=== PATIENT | female | born 1935 | race Two or more races ===

== ENCOUNTER → 2017-03-21 | Outpatient (CLI) | payer OTHER ==
[~2017-03-21] MED LIST: ASPI-515 PO; FURO20TA3 PO; HYDR-3240 PO; LIDOCAINE PATCH 5% SUBD; LISI-167 PO; MULT-6 PO; POTA10TA6 PO
== END | disposition home or self-care (01) ==
LOC: CVU 13:58
PROVIDERS: ATTEND Surgery
DX: I70.213 Atherosclerosis of native arteries of extremities with intermittent claudication, bilateral legs (principal); E78.5 Hyperlipidemia, unspecified; E11.9 Type 2 diabetes mellitus without complications
CPT/HCPCS: 93922; 93925

== ENCOUNTER 2017-03-31 09:42 | Inpatient (IN) | payer OTHER, MEDICARE ==
[~2017-03-31] VITALS: Ht 149.9 cm; Wt 56.8 kg
[2017-03-31 10:34] LABS: HEMATOCRIT 43.8 % (34.6-47.8); HEMOGLOBIN 14.4 g/dL (11.7-16.4); WHITE BLOOD COUNT 8.1 x10^3/uL (3.4-10)
[2017-03-31 10:45] LABS: BLOOD UREA NITROGEN 18 mg/dL (7-18)
[2017-03-31] MEDS ORDERED: CEFTAROLINE 600 MG in SODIUM CHLORIDE 0.9% 100 ML IV ONE (11:00)
[2017-03-31] MEDS ORDERED: DICL100G19 TP (11:33)
[2017-03-31] MEDS ORDERED: FURO-93 PO (11:33)
[2017-03-31] MEDS ORDERED: CETI10CA PO (11:33)
[2017-03-31] MEDS ORDERED: METF500T4 PO (11:33)
[2017-03-31] MEDS ORDERED: TIZA2TAB PO (11:33)
[2017-03-31] MEDS ORDERED: FOLI-17 PO (11:33)
[2017-03-31] MEDS ORDERED: PRED5TAB PO (11:33)
[2017-03-31] MEDS ORDERED: PILO7.5T PO (11:33)
[2017-03-31] MEDS ORDERED: DIPHENHYDRAMINE 50 MG/ML, 1ML ONE (13:24)
[2017-03-31] MEDS ORDERED: methylPREDNISolone SOD SUCC 125 MG/2 ML ONE (13:34)
[2017-03-31] MEDS ORDERED: TEMAZEPAM 15 MG CAPSULE PO PRN (14:00)
[2017-03-31] MEDS ORDERED: DIPHENHYDRAMINE 50 MG/ML, 1ML IVPush ONE (14:00)
[2017-03-31] MEDS ORDERED: DOCUSATE 100 MG CAPSULE PO PRN (14:00)
[2017-03-31] MEDS ORDERED: hydrALAzine 20 MG/ML, 1ML IVPush PRN (14:00)
[2017-03-31] MEDS ORDERED: CEFTAROLINE 600 MG in SODIUM CHLORIDE 0.9% 100 ML IV SCH (14:00)
[2017-03-31] MEDS ORDERED: POLYETHYLENE GLYCOL 17 GM PACKET PO PRN (14:00)
[2017-03-31] MEDS ORDERED: ENALAPRILAT 1.25 MG/ML, 2ML IVPush PRN (14:00)
[2017-03-31] MEDS ORDERED: morphine SULFATE 10 MG/ML, 1ML IVPush PRN (14:00)
[2017-03-31] MEDS ORDERED: ACETAMINOPHEN 325 MG TABLET PO PRN (14:00)
[2017-03-31] MEDS ORDERED: methylPREDNISolone SOD SUCC 125 MG/2 ML IVPush ONE (14:00)
[2017-03-31] MEDS ORDERED: TIZANIDINE HCL 2 MG PO SCH (14:00)
[2017-03-31] MEDS ORDERED: ONDANSETRON 2MG/ML, 2ML IVPush PRN (14:00)
[2017-03-31] MEDS ORDERED: BISACODYL 10 MG SUPP PR PRN (14:00)
[2017-03-31] MEDS: HEPARIN 5,000 UNITS/ML, 1ML SQ SCH ×2 (15:27→23:53)
[2017-03-31] MEDS: OXYcodone IR 5MG TABLET PO PRN (18:34)
[2017-03-31 18:55] VITALS: BP 169/78
[2017-03-31 19:55] VITALS: BP 143/70
[2017-03-31] MEDS: metFORMIN 500 MG TABLET PO SCH (20:42)
[2017-04-01 02:24] VITALS: BP 152/84
[2017-04-01] MEDS: OXYcodone IR 5MG TABLET PO PRN ×3 (02:29→18:30)
[2017-04-01 05:59] LABS: ASPARTATE AMINO TRANSFERASE 14 U/L (15-37); BLOOD UREA NITROGEN 23 mg/dL (7-18); HEMATOCRIT 36.6 % (34.6-47.8); HEMOGLOBIN 12.3 g/dL (11.7-16.4); WHITE BLOOD COUNT 7.4 x10^3/uL (3.4-10)
[2017-04-01] MEDS: HEPARIN 5,000 UNITS/ML, 1ML SQ SCH ×2 (07:19→15:33)
[2017-04-01 08:14] VITALS: BP 122/69
[2017-04-01] MEDS: PILOCARPINE HCL 7.5 MG HOMEMEDPO SCH ×3 (09:00→20:27)
[2017-04-01] MEDS: TEMPLATE NON-FORMULARY MED. (Diclofenac Sodium (Voltaren) 1 APPLIC) TP SCH (09:00)
[2017-04-01] MEDS: CEFTAROLINE 600 MG in SODIUM CHLORIDE 0.9% 100 ML IV SCH ×2 (09:51→20:27)
[2017-04-01] MEDS: LISINOPRIL 10 MG TABLET PO SCH (09:52)
[2017-04-01] MEDS: FOLIC ACID 1 MG TABLET PO SCH (09:52)
[2017-04-01] MEDS: CETIRIZINE 10 MG TABLET PO SCH (09:52)
[2017-04-01] MEDS: POTASSIUM CHLORIDE 10 MEQ TABLET.ER PO SCH (09:52)
[2017-04-01] MEDS: metFORMIN 500 MG TABLET PO SCH ×2 (09:52→20:27)
[2017-04-01] MEDS: ASPIRIN 81 MG TABLET EC PO SCH (09:52)
[2017-04-01 14:30] VITALS: BP 154/90
[2017-04-01 19:05] VITALS: BP 145/73
[2017-04-01] MEDS ORDERED: SIMVASTATIN 40 MG TABLET PO SCH (21:00)
[2017-04-02] MEDS: HEPARIN 5,000 UNITS/ML, 1ML SQ SCH ×3 (00:13→16:30)
[2017-04-02 02:30] VITALS: BP 140/69
[2017-04-02 06:56] VITALS: BP 178/81
[2017-04-02] MEDS: LISINOPRIL 10 MG TABLET PO SCH ×2 (08:59→22:57)
[2017-04-02] MEDS: metFORMIN 500 MG TABLET PO SCH ×2 (08:59→22:57)
[2017-04-02] MEDS: CEFTAROLINE 600 MG in SODIUM CHLORIDE 0.9% 100 ML IV SCH ×2 (08:59→22:56)
[2017-04-02] MEDS: ASPIRIN 81 MG TABLET EC PO SCH (09:00)
[2017-04-02] MEDS: POTASSIUM CHLORIDE 10 MEQ TABLET.ER PO SCH (09:00)
[2017-04-02] MEDS ORDERED: FUROSEMIDE 20 MG TABLET PO SCH (09:00)
[2017-04-02] MEDS: CETIRIZINE 10 MG TABLET PO SCH (09:00)
[2017-04-02] MEDS: FOLIC ACID 1 MG TABLET PO SCH (09:00)
[2017-04-02] MEDS: OXYcodone IR 5MG TABLET PO PRN (09:00)
[2017-04-02] MEDS: PILOCARPINE HCL 7.5 MG HOMEMEDPO SCH ×3 (09:01→21:00)
[2017-04-02] MEDS: TEMPLATE NON-FORMULARY MED. (Diclofenac Sodium (Voltaren) 1 APPLIC) TP SCH (09:03)
[2017-04-02 13:10] VITALS: BP 164/66
[2017-04-02 15:35] VITALS: BP 157/80
[2017-04-02] MEDS ORDERED: BISACODYL 10 MG SUPP PR PRN (17:00)
[2017-04-02] MEDS ORDERED: ENALAPRILAT 1.25 MG/ML, 2ML IVPush PRN (17:00)
[2017-04-02] MEDS ORDERED: ONDANSETRON 2MG/ML, 2ML IVPush PRN (17:00)
[2017-04-02] MEDS ORDERED: TEMAZEPAM 15 MG CAPSULE PO PRN (17:00)
[2017-04-02] MEDS ORDERED: morphine SULFATE 10 MG/ML, 1ML IVPush PRN (17:00)
[2017-04-02] MEDS ORDERED: ACETAMINOPHEN 325 MG TABLET PO PRN (17:00)
[2017-04-02] MEDS ORDERED: POLYETHYLENE GLYCOL 17 GM PACKET PO PRN (17:00)
[2017-04-02] MEDS ORDERED: hydrALAzine 20 MG/ML, 1ML IVPush PRN (17:00)
[2017-04-02] MEDS ORDERED: DOCUSATE 100 MG CAPSULE PO PRN (17:00)
[2017-04-02 19:00] VITALS: BP 145/74
[2017-04-02] MEDS: SIMVASTATIN 40 MG TABLET PO SCH (23:01)
[2017-04-03] MEDS: HEPARIN 5,000 UNITS/ML, 1ML SQ SCH ×3 (01:33→16:41)
[2017-04-03 01:36] VITALS: BP 111/61
[2017-04-03 07:20] VITALS: BP 130/54
[2017-04-03] MEDS: PILOCARPINE HCL 7.5 MG HOMEMEDPO SCH ×3 (09:00→21:00)
[2017-04-03] MEDS: TEMPLATE NON-FORMULARY MED. (Diclofenac Sodium (Voltaren) 1 APPLIC) TP SCH (09:00)
[2017-04-03] MEDS: CEFTAROLINE 600 MG in SODIUM CHLORIDE 0.9% 100 ML IV SCH ×2 (09:56→22:09)
[2017-04-03] MEDS: ASPIRIN 81 MG TABLET EC PO SCH (09:57)
[2017-04-03] MEDS: POTASSIUM CHLORIDE 10 MEQ TABLET.ER PO SCH (09:57)
[2017-04-03] MEDS: metFORMIN 500 MG TABLET PO SCH ×2 (09:57→22:09)
[2017-04-03] MEDS: FOLIC ACID 1 MG TABLET PO SCH (09:57)
[2017-04-03] MEDS: CETIRIZINE 10 MG TABLET PO SCH (09:58)
[2017-04-03] MEDS: LISINOPRIL 10 MG TABLET PO SCH ×2 (09:58→22:09)
[2017-04-03 15:22] VITALS: BP 125/63
[2017-04-03] MEDS ORDERED: GLIMEPIRIDE 1 MG TABLET PO ONE (17:00)
[2017-04-03] MEDS: GLIMEPIRIDE 1 MG TABLET PO SCH (18:02)
[2017-04-03 19:47] VITALS: BP 144/68
[2017-04-03] MEDS: SIMVASTATIN 40 MG TABLET PO SCH (22:09)
[2017-04-04] MEDS: HEPARIN 5,000 UNITS/ML, 1ML SQ SCH ×3 (01:12→17:05)
[2017-04-04 01:52] VITALS: BP 95/52
[2017-04-04 05:38] LABS: BLOOD UREA NITROGEN 27 mg/dL (7-18)
[2017-04-04 06:55] VITALS: BP 137/73
[2017-04-04] MEDS: GLIMEPIRIDE 1 MG TABLET PO SCH ×2 (08:00→16:22)
[2017-04-04] MEDS: PILOCARPINE HCL 7.5 MG HOMEMEDPO SCH ×3 (09:00→21:00)
[2017-04-04] MEDS: TEMPLATE NON-FORMULARY MED. (Diclofenac Sodium (Voltaren) 1 APPLIC) TP SCH (09:00)
[2017-04-04] MEDS: SODIUM CHLORIDE 0.9% 1,000 ML IV SCH ×2 (10:13→21:12)
[2017-04-04] MEDS: CEFTAROLINE 600 MG in SODIUM CHLORIDE 0.9% 100 ML IV SCH ×2 (10:14→21:11)
[2017-04-04] MEDS: CETIRIZINE 10 MG TABLET PO SCH (10:14)
[2017-04-04] MEDS: POTASSIUM CHLORIDE 10 MEQ TABLET.ER PO SCH (10:14)
[2017-04-04] MEDS: FOLIC ACID 1 MG TABLET PO SCH (10:14)
[2017-04-04] MEDS: ASPIRIN 81 MG TABLET EC PO SCH (10:14)
[2017-04-04] MEDS: METOPROLOL TARTRATE 25 MG TABLET PO SCH ×2 (10:15→17:47)
[2017-04-04 13:28] VITALS: BP 105/55
[2017-04-04 17:23] VITALS: BP 147/73
[2017-04-04 20:26] VITALS: BP 132/65
[2017-04-04] MEDS: SIMVASTATIN 40 MG TABLET PO SCH (21:11)
[2017-04-05] MEDS: HEPARIN 5,000 UNITS/ML, 1ML SQ SCH ×3 (01:05→16:47)
[2017-04-05 02:27] VITALS: BP 155/64
[2017-04-05 04:57] LABS: BLOOD UREA NITROGEN 24 mg/dL (7-18)
[2017-04-05] MEDS: METOPROLOL TARTRATE 25 MG TABLET PO SCH ×2 (05:44→17:54)
[2017-04-05] MEDS: PILOCARPINE HCL 7.5 MG HOMEMEDPO SCH ×3 (09:00→20:04)
[2017-04-05] MEDS: TEMPLATE NON-FORMULARY MED. (Diclofenac Sodium (Voltaren) 1 APPLIC) TP SCH (09:00)
[2017-04-05] MEDS: GLIMEPIRIDE 1 MG TABLET PO SCH ×2 (09:08→16:47)
[2017-04-05] MEDS: CETIRIZINE 10 MG TABLET PO SCH (09:08)
[2017-04-05] MEDS: POTASSIUM CHLORIDE 10 MEQ TABLET.ER PO SCH (09:09)
[2017-04-05] MEDS: SODIUM CHLORIDE 0.9% 1,000 ML IV SCH ×2 (09:09→21:15)
[2017-04-05] MEDS: FOLIC ACID 1 MG TABLET PO SCH (09:09)
[2017-04-05] MEDS: ASPIRIN 81 MG TABLET EC PO SCH (09:09)
[2017-04-05 09:14] VITALS: BP 138/71
[2017-04-05] MEDS: CEFTAROLINE 600 MG in SODIUM CHLORIDE 0.9% 100 ML IV SCH ×2 (09:24→21:00)
[2017-04-05 09:53] VITALS: BP 153/75
[2017-04-05 16:01] VITALS: BP 138/71
[2017-04-05 17:53] VITALS: BP 133/59
[2017-04-05 19:36] VITALS: BP 120/59
[2017-04-05] MEDS: SIMVASTATIN 40 MG TABLET PO SCH (21:00)
[2017-04-06] MEDS: HEPARIN 5,000 UNITS/ML, 1ML SQ SCH ×2 (00:54→08:12)
[2017-04-06 01:24] VITALS: BP 120/58
[2017-04-06] MEDS: METOPROLOL TARTRATE 25 MG TABLET PO SCH (04:51)
[2017-04-06 05:24] LABS: BLOOD UREA NITROGEN 21 mg/dL (7-18)
[2017-04-06 06:31] VITALS: BP 143/72
[2017-04-06] MEDS: PILOCARPINE HCL 7.5 MG HOMEMEDPO SCH (08:10)
[2017-04-06] MEDS: GLIMEPIRIDE 1 MG TABLET PO SCH (08:10)
[2017-04-06] MEDS: ASPIRIN 81 MG TABLET EC PO SCH (08:11)
[2017-04-06] MEDS: POTASSIUM CHLORIDE 10 MEQ TABLET.ER PO SCH (08:11)
[2017-04-06] MEDS: CETIRIZINE 10 MG TABLET PO SCH (08:11)
[2017-04-06] MEDS: FOLIC ACID 1 MG TABLET PO SCH (08:11)
[2017-04-06] MEDS: TEMPLATE NON-FORMULARY MED. (Diclofenac Sodium (Voltaren) 1 APPLIC) TP SCH (08:12)
[2017-04-06] MEDS: CEFTAROLINE 600 MG in SODIUM CHLORIDE 0.9% 100 ML IV SCH (09:14)
[2017-04-06] MEDS ORDERED: GLIM1TAB PO (10:08)
[2017-04-06] MEDS ORDERED: METO25TA35 PO (10:08)
[2017-04-06] MEDS ORDERED: OXYC5TAB3 PO (10:08)
[2017-04-06] MEDS ORDERED: HYDR-3343 PO ×2 (10:08)
[2017-04-06] MEDS ORDERED: SULF1TAB24 PO (10:08)
[2017-04-06] MEDS ORDERED: SIMV40TA3 PO (10:08)
[2017-04-06] MEDS ORDERED: POLY17PO5 PO (10:08)
[2017-04-06] MEDS ORDERED: SULFAMETH./TRIMETHOPRIM DS 800MG/160MG TABLET PO SCH (10:30)
== END 2017-04-06 12:10 | disposition home health service (06) | DRG 603 ==
LOC: ED 10:44 → EDIP 10:59 → 4NOR 14:35
PROVIDERS: ADMIT Internal Medicine; ATTEND Internal Medicine
PROC: 02HV33Z Insertion of Infusion Device into Superior Vena Cava, Percutaneous Approach (ICD-10-PCS; principal; 2017-03-31)
PROC: B5181ZA Fluoroscopy of Superior Vena Cava using Low Osmolar Contrast, Guidance (ICD-10-PCS; 2017-03-31)
PROC: B548ZZA Ultrasonography of Superior Vena Cava, Guidance (ICD-10-PCS; 2017-03-31)
DX: L03.115 Cellulitis of right lower limb (principal); N18.4 Chronic kidney disease, stage 4 (severe); E11.51 Type 2 diabetes mellitus with diabetic peripheral angiopathy without gangrene; E11.22 Type 2 diabetes mellitus with diabetic chronic kidney disease; E11.621 Type 2 diabetes mellitus with foot ulcer; E78.5 Hyperlipidemia, unspecified; B95.61 Methicillin susceptible Staphylococcus aureus infection as the cause of diseases classified elsewhere; G89.29 Other chronic pain; I12.9 Hypertensive chronic kidney disease with stage 1 through stage 4 chronic kidney disease, or unspecified chronic kidney disease; I25.2 Old myocardial infarction; L97.509 Non-pressure chronic ulcer of other part of unspecified foot with unspecified severity; M06.9 Rheumatoid arthritis, unspecified; M47.892 Other spondylosis, cervical region; M47.894 Other spondylosis, thoracic region; Z88.0 Allergy status to penicillin; Z90.49 Acquired absence of other specified parts of digestive tract; Z91.041 Radiographic dye allergy status; Z91.040 Latex allergy status
CPT/HCPCS: 36415; 36569; 72050; 72110; 72125; 72141; 76770; 76937; 77001; 80048; 80053; 80061; 81003; 82040; 82962; 83036; 83605; 83735; 84145; 84439; 84443; 85025; 87040; 87070; 87077; 87186; 87205; 93005; 96374; 96375; J0712; J1644; C1751; J0360; J1200; J2930; J7030; J7512

== ENCOUNTER 2017-05-07 11:52 | Inpatient (IN) | payer MEDICARE, OTHER ==
[~2017-05-07] VITALS: Ht 149.9 cm; Wt 53.8 kg
[~2017-05-07 11:52] MED LIST changes: +CETI10CA PO; +DICL100G19 TP; +DOCU100T6 PO; +FOLI-17 PO; +FURO-93 PO; +GLIM1TAB PO; +GLIM1TAB2 PO; +HYDR-3343 PO; +METF500T4 PO; +METO25TA35 PO; +OXYC5TAB3 PO; +PILO7.5T PO; +POLY17PO5 PO; +PRED5TAB PO; +RANI-276 PO; +SIMV40TA3 PO; +SULF1TAB24 PO; +TIZA2TAB PO
[2017-05-07] MEDS ORDERED: SODIUM CHLORIDE FLUSH 10ML SYR IVF ONE (12:00)
[2017-05-07 12:27] LABS: HEMATOCRIT 44.4 % (34.6-47.8); HEMOGLOBIN 14.4 g/dL (11.7-16.4); WHITE BLOOD COUNT 11.3 x10^3/uL (3.4-10)
[2017-05-07] MEDS ORDERED: DEXTROSE 50%, 50ML SYRINGE IVPush ONE (12:30)
[2017-05-07] MEDS ORDERED: DEXTROSE 10%, 1,000ML IV ONE (12:30)
[2017-05-07 12:33] LABS: ASPARTATE AMINO TRANSFERASE 19 U/L (15-37); BLOOD UREA NITROGEN 22 mg/dL (7-18)
[2017-05-07] MEDS ORDERED: DEXTROSE 50%, 50ML SYRINGE ONE (12:57)
[2017-05-07] MEDS ORDERED: DEXTROSE 4 GM TAB.CHEW PO PRN (15:30)
[2017-05-07] MEDS ORDERED: DEXTROSE 50%, 50ML SYRINGE IVPush PRN (15:30)
[2017-05-07] MEDS ORDERED: SODIUM CHLORIDE FLUSH 10ML SYR IVF PRN (15:30)
[2017-05-07] MEDS ORDERED: ACETAMINOPHEN 325 MG TABLET PO PRN (15:30)
[2017-05-07] MEDS ORDERED: GLUCAGON 1 MG IM PRN (15:30)
[2017-05-07] MEDS: DEXTROSE 10% 1,000 ML IV SCH ×2 (16:45→22:40)
[2017-05-07 16:56] VITALS: BP 142/42
[2017-05-07] MEDS: ENOXAPARIN 30 MG/0.3 ML SQ SCH (20:56)
[2017-05-07] MEDS: SIMVASTATIN 40 MG TABLET PO SCH (20:57)
[2017-05-07] MEDS: METOPROLOL TARTRATE 25 MG TABLET PO SCH (20:57)
[2017-05-08 04:00] VITALS: BP 126/41
[2017-05-08 07:46] LABS: BLOOD UREA NITROGEN 11 mg/dL (7-18)
[2017-05-08] MEDS: TEMPLATE NON-FORMULARY MED. (Diclofenac Sodium (Voltaren) 1 APPLIC) HOMETD SCH (08:34)
[2017-05-08] MEDS: ASPIRIN 81 MG TABLET EC PO SCH (08:35)
[2017-05-08] MEDS: FOLIC ACID 1 MG TABLET PO SCH (08:35)
[2017-05-08] MEDS: FAMOTIDINE 20 MG TABLET PO SCH (08:35)
[2017-05-08] MEDS: DOCUSATE 100 MG CAPSULE PO SCH (08:36)
[2017-05-08] MEDS: METOPROLOL TARTRATE 25 MG TABLET PO SCH ×2 (08:37→20:05)
[2017-05-08 10:00] VITALS: BP 143/77
[2017-05-08] MEDS: INSULIN ASPART 100 UNITS/ML, PEN SQ-INSULIN SCH ×3 (12:18→20:15)
[2017-05-08 13:01] VITALS: BP 132/75
[2017-05-08] MEDS ORDERED: TEMAZEPAM 15 MG CAPSULE PO PRN (17:00)
[2017-05-08 19:13] VITALS: BP 132/58
[2017-05-08] MEDS: SULFAMETH./TRIMETHOPRIM DS 800MG/160MG TABLET PO SCH (20:05)
[2017-05-08] MEDS: ENOXAPARIN 30 MG/0.3 ML SQ SCH (20:06)
[2017-05-08] MEDS: SIMVASTATIN 40 MG TABLET PO SCH (20:06)
[2017-05-09 01:36] VITALS: BP 93/53
[2017-05-09 06:11] LABS: HEMATOCRIT 36.2 % (34.6-47.8); HEMOGLOBIN 11.7 g/dL (11.7-16.4); WHITE BLOOD COUNT 7.8 x10^3/uL (3.4-10)
[2017-05-09] MEDS: INSULIN ASPART 100 UNITS/ML, PEN SQ-INSULIN SCH ×2 (07:00→11:00)
[2017-05-09 07:50] VITALS: BP 133/68
[2017-05-09] MEDS: METOPROLOL TARTRATE 25 MG TABLET PO SCH (08:13)
[2017-05-09] MEDS: ASPIRIN 81 MG TABLET EC PO SCH (08:13)
[2017-05-09] MEDS: FOLIC ACID 1 MG TABLET PO SCH (08:13)
[2017-05-09] MEDS: TEMPLATE NON-FORMULARY MED. (Diclofenac Sodium (Voltaren) 1 APPLIC) HOMETD SCH (08:13)
[2017-05-09] MEDS: DOCUSATE 100 MG CAPSULE PO SCH (08:13)
[2017-05-09] MEDS: SULFAMETH./TRIMETHOPRIM DS 800MG/160MG TABLET PO SCH (08:13)
[2017-05-09] MEDS: FAMOTIDINE 20 MG TABLET PO SCH (08:13)
[2017-05-09 13:03] VITALS: BP 121/68
[2017-05-09] MEDS ORDERED: ENOXAPARIN 40 MG/0.4 ML SQ SCH (20:00)
== END 2017-05-09 15:45 | disposition home or self-care (01) | DRG 639 ==
LOC: ED 13:04 → EDIP 15:01 → CCU 16:21 → 3NE 05-08 10:15
PROVIDERS: ADMIT Internal Medicine; ATTEND Internal Medicine
PROC: 02HV33Z Insertion of Infusion Device into Superior Vena Cava, Percutaneous Approach (ICD-10-PCS; principal; 2017-05-07)
PROC: B5181ZA Fluoroscopy of Superior Vena Cava using Low Osmolar Contrast, Guidance (ICD-10-PCS; 2017-05-07)
DX: E11.649 Type 2 diabetes mellitus with hypoglycemia without coma (principal); E11.22 Type 2 diabetes mellitus with diabetic chronic kidney disease; E11.51 Type 2 diabetes mellitus with diabetic peripheral angiopathy without gangrene; I12.9 Hypertensive chronic kidney disease with stage 1 through stage 4 chronic kidney disease, or unspecified chronic kidney disease; N18.2 Chronic kidney disease, stage 2 (mild); M06.9 Rheumatoid arthritis, unspecified; M54.2 Cervicalgia; M54.9 Dorsalgia, unspecified; G89.29 Other chronic pain; E78.5 Hyperlipidemia, unspecified; K21.9 Gastro-esophageal reflux disease without esophagitis; I25.2 Old myocardial infarction; Z79.899 Other long term (current) drug therapy; Z79.1 Long term (current) use of non-steroidal anti-inflammatories (NSAID); Z88.0 Allergy status to penicillin; Z88.8 Allergy status to other drugs, medicaments and biological substances; Z91.041 Radiographic dye allergy status; Z91.040 Latex allergy status
CPT/HCPCS: 36415; 36569; 71010; 76937; 77001; 80048; 80053; 81003; 82962; 83036; 85025; 87081; 93005; 96374; J1650; J1815; C1751

== ENCOUNTER → 2017-06-08 | Outpatient (CLI) | payer MEDICARE, OTHER ==
[~2017-06-08] MED LIST changes: +CHOL2000 PO; +DOXY100T PO; +MUPI15CR9 TD
[2017-06-08 12:57] LABS: ASPARTATE AMINO TRANSFERASE 28 U/L (15-37); BLOOD UREA NITROGEN 24 mg/dL (7-18)
[2017-06-08 13:25] LABS: HEMATOCRIT 44.7 % (34.6-47.8); HEMOGLOBIN 14.5 g/dL (11.7-16.4); WHITE BLOOD COUNT 9.8 x10^3/uL (3.4-10)
== END | disposition home or self-care (01) ==
LOC: CFH 08:03
PROVIDERS: ATTEND Internal Medicine Cardiovascular Disease
DX: I07.1 Rheumatic tricuspid insufficiency (principal); E78.2 Mixed hyperlipidemia; I10 Essential (primary) hypertension; I48.91 Unspecified atrial fibrillation; I73.9 Peripheral vascular disease, unspecified; E11.8 Type 2 diabetes mellitus with unspecified complications; E78.5 Hyperlipidemia, unspecified
CPT/HCPCS: 36415; 80053; 80061; 84436; 84443; 84481; 85025; 93306

== ENCOUNTER → 2017-06-15 | Outpatient (CLI) | payer MEDICARE, OTHER ==
[~2017-06-15] MED LIST changes: +REGADENOSON 0.4 MG/5 ML SYRINGE ONE
== END | disposition home or self-care (01) ==
LOC: CFH 07:43
PROVIDERS: ATTEND Internal Medicine Cardiovascular Disease
DX: Z02.9 Encounter for administrative examinations, unspecified (principal)
CPT/HCPCS: J2785

== ENCOUNTER → 2017-08-16 | Outpatient (CLI) | payer MEDICARE, OTHER | END | disposition home or self-care (01) | LOC: RAD 11:43 | PROVIDERS: ATTEND Internal Medicine Cardiovascular Disease | DX: R06.02 Shortness of breath (principal); I48.0 Paroxysmal atrial fibrillation; R53.83 Other fatigue; E78.2 Mixed hyperlipidemia; E11.9 Type 2 diabetes mellitus without complications; E55.9 Vitamin D deficiency, unspecified; I10 Essential (primary) hypertension; L03.90 Cellulitis, unspecified; R79.9 Abnormal finding of blood chemistry, unspecified; M06.9 Rheumatoid arthritis, unspecified; Z79.899 Other long term (current) drug therapy; R05 Cough; M79.604 Pain in right leg | CPT/HCPCS: 78452; 93017; A9502; J2785 ==

== ENCOUNTER → 2017-09-05 | Outpatient (CLI) | payer MEDICARE, OTHER ==
[~2017-09-05] MED LIST changes: -REGADENOSON 0.4 MG/5 ML SYRINGE ONE
[2017-09-05 08:33] LABS: BASOPHILS # (AUTO) 0.02 x10^3/uL (0-0.1); BASOPHILS % (AUTO) 0 % (0-1); EOSINOPHILS # (AUTO) 0.29 x10^3/uL (0-0.4); EOSINOPHILS % (AUTO) 4 % (1-7); LYMPHOCYTES # (AUTO) 1.46 x10^3/uL (1-3.4); LYMPHOCYTES % (AUTO) 19 % (22-44); MD NO; MEAN CORPUSCULAR HEMOGLOBIN 26.7 pg (27.0-34.8); MEAN CORPUSCULAR HGB CONC 32.5 g/dL (32.4-35.8); MONOCYTES % (AUTO) 8 % (2-9); NEUTROPHILS # (AUTO) 5.48 x10^3/uL (1.8-6.8); NEUTROPHILS % (AUTO) 70 % (42-75); PLATELET COUNT 224 x10^3/uL (130-400); RED BLOOD COUNT 4.53 x10^6/uL (3.82-5.3); RED CELL DISTRIBUTION WIDTH 16.8 % (9.6-15.2)
[2017-09-05 08:34] LABS: ALANINE AMINOTRANSFERASE 13 U/L (12-78); ALBUMIN 3.5 g/dL (3.4-5.0); ANION GAP 9 mmol/L (5-15); CALCIUM 8.7 mg/dL (8.5-10.1); CHLORIDE 108 mmol/L (98-107); CHOLESTEROL, TOTAL 103 mg/dL (140-239); CREATININE 0.87 mg/dL (0.55-1.02)
[2017-09-05 08:37] LABS: ALKALINE PHOSPHATASE 63 U/L (45-117); BILIRUBIN,TOTAL 0.3 mg/dL (0.2-1.0); CHOL/HDL RATIO 2.1; HDL CHOL % 49 % (28-40); HDL CHOLESTEROL (DIRECT) 50 mg/dL (40-60); LDL CHOLESTEROL,CALCULATED 20 mg/dL (54-169); LDL/HDL RATIO 0.4 (0.5-3.0); TOTAL PROTEIN 7.2 g/dL (6.4-8.2); TRIGLYCERIDES 163 mg/dL (50-200); VLDL CHOLESTEROL 33 mg/dL (0-25)
== END | disposition home or self-care (01) ==
LOC: LAB 07:58
PROVIDERS: ATTEND Internal Medicine Cardiovascular Disease
DX: E11.8 Type 2 diabetes mellitus with unspecified complications (principal); E78.00 Pure hypercholesterolemia, unspecified; I10 Essential (primary) hypertension; I48.0 Paroxysmal atrial fibrillation
CPT/HCPCS: 36415; 80053; 80061; 83036; 85025

== ENCOUNTER → 2017-10-30 | Outpatient (CLI) | payer MEDICARE, OTHER ==
[2017-10-30 08:36] LABS: MICROSCOPIC INDICATED
[2017-10-30 08:37] LABS: CULTURE INDICATED? NO
== END | disposition home or self-care (01) ==
LOC: LAB 07:46
PROVIDERS: ATTEND Nurse Practitioner Primary Care
DX: N39.0 Urinary tract infection, site not specified (principal)
CPT/HCPCS: 81001; 87077; 87086; 87186

== ENCOUNTER → 2017-12-08 | Outpatient (CLI) | payer MEDICARE, OTHER ==
[2017-12-08 08:00] LABS: ALANINE AMINOTRANSFERASE 17 U/L (12-78); ALBUMIN 3.6 g/dL (3.4-5.0); ANION GAP 8 mmol/L (5-15); CALCIUM 8.9 mg/dL (8.5-10.1); CHLORIDE 110 mmol/L (98-107)
[2017-12-08 08:03] LABS: ALKALINE PHOSPHATASE 71 U/L (45-117); BILIRUBIN,TOTAL 0.4 mg/dL (0.2-1.0); CHOL/HDL RATIO 2.4; CHOLESTEROL, TOTAL 123 mg/dL (140-239); CREATININE 0.82 mg/dL (0.55-1.02); HDL CHOL % 42 % (28-40); HDL CHOLESTEROL (DIRECT) 52 mg/dL (40-60); LDL CHOLESTEROL,CALCULATED 45 mg/dL (54-169); LDL/HDL RATIO 0.9 (0.5-3.0); TOTAL PROTEIN 7.3 g/dL (6.4-8.2); TRIGLYCERIDES 131 mg/dL (50-200); VLDL CHOLESTEROL 26 mg/dL (0-25)
== END | disposition home or self-care (01) ==
LOC: LAB 07:33
PROVIDERS: ATTEND Nurse Practitioner Primary Care
DX: I10 Essential (primary) hypertension (principal); E11.9 Type 2 diabetes mellitus without complications; K29.70 Gastritis, unspecified, without bleeding; N39.0 Urinary tract infection, site not specified; M06.9 Rheumatoid arthritis, unspecified; E55.9 Vitamin D deficiency, unspecified; E78.2 Mixed hyperlipidemia; R53.83 Other fatigue; R79.9 Abnormal finding of blood chemistry, unspecified; Z79.899 Other long term (current) drug therapy
CPT/HCPCS: 36415; 80053; 80061; 82043

== ENCOUNTER → 2018-05-16 | Outpatient (CLI) | payer MEDICARE, OTHER ==
[~2018-05-16] MED LIST changes: +METF500T17 PO; -METF500T4 PO
== END | disposition home or self-care (01) ==
LOC: CVU 07:41
PROVIDERS: ATTEND Surgery
DX: I70.201 Unspecified atherosclerosis of native arteries of extremities, right leg (principal); I87.2 Venous insufficiency (chronic) (peripheral); I25.2 Old myocardial infarction; L03.115 Cellulitis of right lower limb; Z85.831 Personal history of malignant neoplasm of soft tissue; Z88.0 Allergy status to penicillin
CPT/HCPCS: 93922; 93925; 93970

== ENCOUNTER → 2018-05-28 | Outpatient (CLI) | payer MEDICARE, OTHER ==
[2018-05-28 15:12] LABS: MICROSCOPIC NOT IND
[2018-05-28 15:15] LABS: CULTURE INDICATED? NO
[2018-05-28 15:19] LABS: MEAN CORPUSCULAR HEMOGLOBIN 21.8 pg (27.0-34.8); MEAN CORPUSCULAR HGB CONC 31.5 g/dL (32.4-35.8); MEAN CORPUSCULAR VOLUME 69.3 fL (80-100); MEAN PLATELET VOLUME 10.7 fL (7.4-10.4); PLATELET COUNT 296 x10^3/uL (130-400); RED BLOOD COUNT 4.79 x10^6/uL (3.82-5.3)
[2018-05-28 15:38] LABS: HEMOGLOBIN A1C 6.4 % (4.2-6.3)
[2018-05-28 15:47] LABS: ALBUMIN 3.5 g/dL (3.4-5.0); ANION GAP 13 mmol/L (5-15); CALCIUM 8.8 mg/dL (8.5-10.1); CHLORIDE 107 mmol/L (98-107)
[2018-05-28 16:04] LABS: BASOPHILS # (AUTO) 0.02 x10^3/uL (0-0.1); BASOPHILS % (AUTO) 0 % (0-1); EOSINOPHILS # (AUTO) 0.25 x10^3/uL (0-0.4); EOSINOPHILS % (AUTO) 4 % (1-7); LYMPHOCYTES # (AUTO) 1.04 x10^3/uL (1-3.4); LYMPHOCYTES % (AUTO) 15 % (22-44); MD MORPH REVIEW ONLY; MONOCYTES # (AUTO) 0.71 x10^3/uL (0.2-0.8); MONOCYTES % (AUTO) 10 % (2-9); NEUTROPHILS # (AUTO) 4.85 x10^3/uL (1.8-6.8); NEUTROPHILS % (AUTO) 71 % (42-75)
[2018-05-28 16:05] LABS: ANISOCYTOSIS 1+; HYPOCHROMIA 1+; MICROCYTOSIS 1+; POLYCHROMASIA 1+
[2018-05-28 16:06] LABS: <PLATELET ESTIMATE> ADEQUATE; LARGE PLATELETS 1+; OVALOCYTES 1+
[2018-05-28 16:17] LABS: ALANINE AMINOTRANSFERASE 19 U/L (12-78); ALKALINE PHOSPHATASE 56 U/L (45-117); BILIRUBIN,TOTAL 0.3 mg/dL (0.2-1.0); TOTAL PROTEIN 7.3 g/dL (6.4-8.2)
[2018-05-28 16:18] LABS: FOLATE LEVEL > 20.0 ng/mL (3.1-17.5)
== END | disposition home or self-care (01) ==
LOC: LAB 14:42
PROVIDERS: ATTEND Nurse Practitioner Primary Care
DX: E11.9 Type 2 diabetes mellitus without complications (principal); E78.2 Mixed hyperlipidemia; I10 Essential (primary) hypertension; E55.9 Vitamin D deficiency, unspecified; R53.83 Other fatigue; R79.9 Abnormal finding of blood chemistry, unspecified; M06.9 Rheumatoid arthritis, unspecified; K29.70 Gastritis, unspecified, without bleeding; N39.0 Urinary tract infection, site not specified; R53.81 Other malaise; R62.7 Adult failure to thrive; Z79.899 Other long term (current) drug therapy
CPT/HCPCS: 36415; 80053; 81003; 82607; 82746; 83036; 84207; 84425; 85025

== ENCOUNTER 2018-05-29 14:28 | Emergency (ER) | payer MEDICARE, OTHER ==
[~2018-05-29] VITALS: Ht 149.9 cm; Wt 48.7 kg
[2018-05-29 16:12] LABS: ALANINE AMINOTRANSFERASE 23 U/L (12-78); ALBUMIN 3.6 g/dL (3.4-5.0); ANION GAP 13 mmol/L (5-15); CALCIUM 9.5 mg/dL (8.5-10.1); CHLORIDE 107 mmol/L (98-107); CREATININE 0.95 mg/dL (0.55-1.02)
[2018-05-29 16:14] LABS: ALKALINE PHOSPHATASE 56 U/L (45-117); BILIRUBIN,TOTAL 0.2 mg/dL (0.2-1.0); TOTAL PROTEIN 7.7 g/dL (6.4-8.2)
[2018-05-29 16:17] LABS: MEAN CORPUSCULAR HEMOGLOBIN 21.2 pg (27.0-34.8); MEAN CORPUSCULAR VOLUME 68.4 fL (80-100); PLATELET COUNT 281 x10^3/uL (130-400); RED CELL DISTRIBUTION WIDTH 21.2 % (9.6-15.2)
[2018-05-29 16:41] LABS: BASOPHILS # (AUTO) 0.05 x10^3/uL (0-0.1); BASOPHILS % (AUTO) 1 % (0-1); EOSINOPHILS # (AUTO) 0.24 x10^3/uL (0-0.4); EOSINOPHILS % (AUTO) 3 % (1-7); LYMPHOCYTES # (AUTO) 1.29 x10^3/uL (1-3.4); LYMPHOCYTES % (AUTO) 14 % (22-44); MD SCAN; MONOCYTES # (AUTO) 0.75 x10^3/uL (0.2-0.8); MONOCYTES % (AUTO) 8 % (2-9); NEUTROPHILS # (AUTO) 6.89 x10^3/uL (1.8-6.8); NEUTROPHILS % (AUTO) 75 % (42-75)
[2018-05-29 17:18] VITALS: BP 143/74
== END 2018-05-29 18:46 | disposition home or self-care (01) ==
LOC: ED 18:42
DX: L03.032 Cellulitis of left toe (principal); E11.9 Type 2 diabetes mellitus without complications; I10 Essential (primary) hypertension; I25.2 Old myocardial infarction; N28.9 Disorder of kidney and ureter, unspecified; I73.9 Peripheral vascular disease, unspecified; Z87.891 Personal history of nicotine dependence
CPT/HCPCS: 36415; 80053; 85025; 99284

== ENCOUNTER 2018-09-13 11:16 | Emergency (ER) | payer MEDICARE, OTHER ==
[~2018-09-13] VITALS: Ht 149.9 cm; Wt 47.0 kg
[~2018-09-13 11:16] MED LIST changes: -RANI-276 PO; +RANI-448 PO
[2018-09-13 12:40] LABS: ALBUMIN 3.7 g/dL (3.4-5.0); ANION GAP 8 mmol/L (5-15); CALCIUM 9.6 mg/dL (8.5-10.1); CHLORIDE 109 mmol/L (98-107); CREATININE 0.82 mg/dL (0.55-1.02)
[2018-09-13 13:18] LABS: MD YES; MEAN CORPUSCULAR HEMOGLOBIN 25.4 pg (27.0-34.8); MEAN CORPUSCULAR HGB CONC 32.4 g/dL (32.4-35.8); MEAN CORPUSCULAR VOLUME 78.5 fL (80-100); MEAN PLATELET VOLUME 10.2 fL (7.4-10.4); PLATELET COUNT 223 x10^3/uL (130-400); RED BLOOD COUNT 4.78 x10^6/uL (3.82-5.3); RED CELL DISTRIBUTION WIDTH 20.4 % (9.6-15.2)
[2018-09-13 13:21] LABS: <PLATELET ESTIMATE> ADEQUATE; <PLT MORPHOLOGY> NORMAL PLT MORPH; ANISOCYTOSIS 1+; EOS% (MANUAL) 5 % (1-7); HYPOCHROMIA 1+; LYMPH#(MANUAL) 1.82 x10^3/uL (1-3.4); LYMPHS% (MANUAL) 23 % (22-44); MONOS#(MANUAL) 0.55 x10^3/uL (0.3-2.7); MONOS% (MANUAL) 7 % (2-9); SEG#(MANUAL) 5.14 x10^3/uL (1.8-6.8); SEGS% (MANUAL) 65 % (42-75)
--- NOTE | 2018-09-13 15:16 | NUR ---
PT TO ROOM FROM LOBBY.
--- NOTE | 2018-09-13 15:24 | NUR ---
pt presents to ED with c/o generalized weakness x 2 days, diarrhea x 1 today, and worsening cellulitis of left great toe present x 1 year. pt a&o, resps even and unlabored. neuro intact. pt attached to all monitors, call light in reach. awaiting MD and orders.
--- NOTE | 2018-09-13 15:35 | NUR ---
ED Ortiz at bedside to evaluate.
[2018-09-13] MEDS ORDERED: CLINDAMYCIN 300 MG CAPSULE PO ONE (16:00)
[2018-09-13] MEDS ORDERED: CLINDAMYCIN 300 MG CAPSULE ONE (16:24)
[2018-09-13 16:32] VITALS: BP 142/56
--- NOTE | 2018-09-13 16:33 | NUR ---
Pt and family given dc instructions and script. pt medicated per emar with cleocin po, tolerated well. pt states she has had cleocin before with no adverse rxn. pt a&o, resps even and unlabored. gaby. pt wheeled to dc on own wheelchair, accompanied by her daughter.
== END 2018-09-13 16:34 | disposition home or self-care (01) ==
LOC: ED 16:05
DX: L03.032 Cellulitis of left toe (principal); E11.9 Type 2 diabetes mellitus without complications
CPT/HCPCS: 36415; 80048; 82040; 85025; 93005; 99284

== ENCOUNTER 2019-02-16 12:01 | Inpatient (IN) | payer MEDICARE, OTHER ==
[~2019-02-16] VITALS: Ht 149.9 cm; Wt 45.4 kg
[~2019-02-16 12:01] MED LIST changes: -GLIM1TAB2 PO; +GLIM1TAB3 PO; -TIZA2TAB PO; +TIZA2TAB2 PO
[2019-02-16 13:12] LABS: BASOPHILS # (AUTO) 0.01 x10^3/uL (0-0.1); BASOPHILS % (AUTO) 0 % (0-1); EOSINOPHILS % (AUTO) 2 % (1-7); LYMPHOCYTES # (AUTO) 0.59 x10^3/uL (1-3.4); LYMPHOCYTES % (AUTO) 4 % (22-44); MD NO; MEAN CORPUSCULAR HEMOGLOBIN 27.1 pg (27.0-34.8); MEAN CORPUSCULAR HGB CONC 32.4 g/dL (32.4-35.8); MEAN CORPUSCULAR VOLUME 83.5 fL (80-100); MEAN PLATELET VOLUME 9.3 fL (7.4-10.4); MONOCYTES # (AUTO) 1.02 x10^3/uL (0.2-0.8); MONOCYTES % (AUTO) 8 % (2-9); NEUTROPHILS % (AUTO) 86 % (42-75); PLATELET COUNT 299 x10^3/uL (130-400); RED BLOOD COUNT 4.71 x10^6/uL (3.82-5.3); RED CELL DISTRIBUTION WIDTH 15.7 % (9.6-15.2)
[2019-02-16 13:23] LABS: ALANINE AMINOTRANSFERASE 16 U/L (12-78); ALBUMIN 3.5 g/dL (3.4-5.0); ANION GAP 8 mmol/L (5-15); CALCIUM 9.5 mg/dL (8.5-10.1); CHLORIDE 107 mmol/L (98-107); CREATININE 0.74 mg/dL (0.55-1.02)
[2019-02-16 13:26] LABS: ALKALINE PHOSPHATASE 80 U/L (45-117); BILIRUBIN,TOTAL 0.3 mg/dL (0.2-1.0); TOTAL PROTEIN 7.8 g/dL (6.4-8.2)
[2019-02-16] MEDS ORDERED: ONDANSETRON ODT 4 MG PO ONE (13:30)
[2019-02-16] MEDS ORDERED: ONDANSETRON ODT 4 MG ONE (13:30)
[2019-02-16 13:40] LABS: TROPONIN I < 0.015 ng/mL (0.000-0.045)
--- NOTE | 2019-02-16 13:40 | NUR ---
MEDICATED PER EMAR FOR NAUSEA AT 03/12
--- NOTE | 2019-02-16 13:49 | NUR ---
STRAIGHT CATHERIZED FOR UA-WALKED TO LAB. REPORTS NAUSEA IMPROVD TO 12/10 VSS ON CARDIAXC MONITOR UPDATED ON ESTIMATED POC
[2019-02-16 14:00] LABS: CULTURE INDICATED? YES; MICROSCOPIC INDICATED
[2019-02-16] MEDS ORDERED: SODIUM CHLORIDE 0.9%, 500ML IVBOLUS ONE (14:30)
--- NOTE | 2019-02-16 14:30 | NUR ---
CT WAITING ON IV FOR EXAM
--- NOTE | 2019-02-16 14:48 | NUR ---
PIV STARTED TO WHICH 500ML NS BOLUS ADMINISTERED TO CLARIFY CT PLAN WITH PROVIDER ALLERGY TO CONTRAST UPDATED ON POC
[2019-02-16] MEDS ORDERED: methylPREDNISolone SOD SUCC 125 MG/2 ML ONE (14:54)
[2019-02-16] MEDS ORDERED: DIPHENHYDRAMINE 50 MG/ML, 1ML ONE (14:54)
[2019-02-16] MEDS ORDERED: methylPREDNISolone SOD SUCC 125 MG/2 ML IVPush ONE (15:00)
[2019-02-16] MEDS ORDERED: DIPHENHYDRAMINE 50 MG/ML, 1ML IVPush ONE (15:00)
--- NOTE | 2019-02-16 15:03 | NUR ---
PREMEDICATED FOR CT WITH STEROIDS/BENADRYL- PET SUPPLIES SALESPERSON TO SCAN PATIENT MOMENTARILLY VSS ON [employer]OR [employer]
--- NOTE | 2019-02-16 15:34 | NUR ---
PATIENT TO CT SCAN
[2019-02-16] MEDS ORDERED: OMNIPAQUE 350 MG/ML, 100ML BOTTLE ONE (15:49)
[2019-02-16] MEDS ORDERED: CEFTRIAXONE PMX 1GM/50ML 50 ML IV ONE (16:00)
[2019-02-16] MEDS ORDERED: CEFTRIAXONE PMX 1GM/50ML 50 ML ONE (16:06)
--- NOTE | 2019-02-16 16:13 | NUR ---
PATIENT GIVEN ANTIBIOTICS PER MD ORDER. PATIENT RESTING IN BED AND IN NO DISTRESS.
--- NOTE | 2019-02-16 16:20 | NUR ---
WITH REASSESSMENT PATIENT TOLERATED CONTRAST ADMINISTRATION WITH NO ILL EFFECT PROVIDER TO BEDSIDE-PLAN TO ADMIT
[2019-02-16] MEDS ORDERED: SODIUM CHLORIDE 0.9% 1,000 ML IV SCH (17:13)
[2019-02-16] MEDS ORDERED: METOCLOPRAMIDE 5 MG/ML, 2ML IVPush PRN (17:30)
[2019-02-16] MEDS ORDERED: TEMAZEPAM 15 MG CAPSULE PO PRN (17:30)
[2019-02-16] MEDS ORDERED: ACETAMINOPHEN 325 MG TABLET PO PRN (17:30)
[2019-02-16] MEDS ORDERED: hydrALAzine 20 MG/ML, 1ML IVPush PRN (17:30)
[2019-02-16] MEDS ORDERED: LABETALOL 5MG/ML, 20ML IVPush PRN (17:30)
[2019-02-16] MEDS ORDERED: ONDANSETRON 2MG/ML, 2ML IVPush PRN (17:30)
[2019-02-16 17:39] VITALS: BP 125/73
[2019-02-16 20:30] VITALS: BP 131/71
[2019-02-16 21:54] VITALS: BP 126/65
[2019-02-16] MEDS: metFORMIN 500 MG TABLET PO SCH (21:57)
[2019-02-16] MEDS: ENOXAPARIN 30 MG/0.3 ML SQ SCH (21:57)
[2019-02-16] MEDS: METOPROLOL TARTRATE 25 MG TABLET PO SCH (21:57)
[2019-02-17 01:13] VITALS: BP 103/56
[2019-02-17 05:32] LABS: BASOPHILS # (AUTO) 0.01 x10^3/uL (0-0.1); BASOPHILS % (AUTO) 0 % (0-1); EOSINOPHILS # (AUTO) 0.09 x10^3/uL (0-0.4); EOSINOPHILS % (AUTO) 1 % (1-7); LYMPHOCYTES # (AUTO) 0.93 x10^3/uL (1-3.4); LYMPHOCYTES % (AUTO) 13 % (22-44); MD NO; MEAN CORPUSCULAR HEMOGLOBIN 27.2 pg (27.0-34.8); MEAN CORPUSCULAR HGB CONC 32.5 g/dL (32.4-35.8); MEAN CORPUSCULAR VOLUME 83.8 fL (80-100); MEAN PLATELET VOLUME 9.1 fL (7.4-10.4); MONOCYTES # (AUTO) 0.27 x10^3/uL (0.2-0.8); MONOCYTES % (AUTO) 4 % (2-9); NEUTROPHILS # (AUTO) 6.11 x10^3/uL (1.8-6.8); NEUTROPHILS % (AUTO) 82 % (42-75); PLATELET COUNT 276 x10^3/uL (130-400); RED BLOOD COUNT 3.89 x10^6/uL (3.82-5.3)
[2019-02-17 05:35] LABS: ANION GAP 9 mmol/L (5-15); CALCIUM 8.1 mg/dL (8.5-10.1); CHLORIDE 110 mmol/L (98-107)
[2019-02-17 07:27] VITALS: BP 104/47
[2019-02-17] MEDS ORDERED: FAMOTIDINE 20 MG TABLET PO SCH (09:00)
[2019-02-17] MEDS ORDERED: ASPIRIN 81 MG TABLET EC PO SCH (09:00)
[2019-02-17] MEDS: metFORMIN 500 MG TABLET PO SCH (09:43)
[2019-02-17] MEDS: METOPROLOL TARTRATE 25 MG TABLET PO SCH (09:43)
[2019-02-17] MEDS: ENOXAPARIN 30 MG/0.3 ML SQ SCH (09:43)
[2019-02-17] MEDS ORDERED: CEFD300C37 PO (11:03)
[2019-02-17 13:34] VITALS: BP 108/65
[2019-02-17] MEDS ORDERED: CEFTRIAXONE PMX 1GM/50ML 50 ML IV SCH (16:00)
[2019-02-18] MEDS ORDERED: ENOXAPARIN 40 MG/0.4 ML SQ SCH (05:00)
== END 2019-02-17 14:54 | disposition home or self-care (01) | DRG 690 ==
LOC: ED 15:03 → EDIP 16:19 → 4NOR 17:25
PROVIDERS: ADMIT Hospitalist; ATTEND Hospitalist
PROC: 0T9B70Z Drainage of Bladder with Drainage Device, Via Natural or Artificial Opening (ICD-10-PCS; principal; 2019-02-16)
DX: N30.90 Cystitis, unspecified without hematuria (principal); I10 Essential (primary) hypertension; E11.21 Type 2 diabetes mellitus with diabetic nephropathy; M19.90 Unspecified osteoarthritis, unspecified site; I25.2 Old myocardial infarction; Z88.0 Allergy status to penicillin; Z88.3 Allergy status to other anti-infective agents; Z91.040 Latex allergy status
CPT/HCPCS: 36415; 71045; 74177; 80048; 80053; 81001; 83690; 83735; 84100; 84484; 85025; 87077; 87086; 87186; 93005; 96365; 96375; G0378; J0696; J1650; Q0162; Q9967; J1200; J2930; J7030; J7040